=== PATIENT | male | born 1995 | race Caucasian/White ===

== ENCOUNTER 2019-05-15 07:40 | Emergency (ER) | payer BC ==
[2019-05-15 07:52] VITALS: BP 140/91; PULSE 73; RESP 18; TEMP 98.3
[2019-05-15] MEDS ORDERED: KETOROLAC 60 MG/2 ML VIAL IM STA (08:04)
[2019-05-15] MEDS ORDERED: ORPHENADRINE 30 MG/ML 2 ML VIAL IM STA (08:04)
--- NOTE | 2019-05-15 08:07 | ED ---
Back Pain HPI - General Chief Complaint: Back Pain/Injury Stated Complaint: Back pain Time Seen by Provider: 05/15/19 07:52 Source: patient, RN notes reviewed, old records reviewed Limitations: no limitations - History of Present Illness Initial Comments: This is a 24-year-old male presents emergency room today with a history of chronic back pain. Patient reports a past week he's had increased generalized weakness with in the lower extremities. 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 Patient denies any recent fall or trauma to his back. He reports he had x-rays completed by his primary care doctor but does not have with him today. He states he spoke to follow-up with Dr. Mauricio on May 29. He denies any saddle anesthesias. Denies any weight loss or other red flag symptoms. - Related Data Home Medications Medication Instructions Recorded Confirmed Ibuprofen 600 mg PO Q6H PRN 05/15/19 05/15/19 Previous Rx's Medication Instructions Recorded Cyclobenzaprine [Flexeril] 10 mg PO TID #15 tab 05/15/19 Ibuprofen 600 mg PO TID #30 tablet 05/15/19 Allergies Allergy/AdvReac Type Severity Reaction Status Date / Time No Known Allergies Allergy Verified 05/15/19 08:19 Review of Systems ROS Statement: Those systems with pertinent positive or pertinent negative responses have been documented in the HPI. ROS Other: All systems not noted in ROS Statement are negative. Past Medical History Additional Past Medical History / Comment(s): ENLARGED TONSILLS, back pain History of Any Multi-Drug Resistant Organisms: None Reported Past Surgical History: Adenoidectomy, Tonsillectomy Past Anesthesia/Blood Transfusion Reactions: Family History of Problems w/ Anesthesia Additional Past Anesthesia/Blood Transfusion Reaction / Comment(s): NAUSEA POST- OP . MOTHER HAS PONV Past Psychological History: No Psychological Hx Reported Smoking Status: Never smoker Past Alcohol Use History: None Reported Past Drug Use History: None Reported - Past Family History Mother Family Medical History: No Reported History General Exam - General Exam Comments Initial Comments: 24-year-old male. Limitations: no limitations General appearance: alert, in no apparent distress Head exam: Present: atraumatic, normocephalic, normal inspection Eye exam: Present: normal appearance, PERRL, EOMI. Absent: scleral icterus, conjunctival injection, periorbital swelling ENT exam: Present: normal exam, mucous membranes moist Neck exam: Present: normal inspection Respiratory exam: Present: normal lung sounds bilaterally. Absent: respiratory distress, wheezes, rales, rhonchi, stridor Cardiovascular Exam: Present: regular rate, normal rhythm, normal heart sounds. Absent: systolic murmur, diastolic murmur, rubs, gallop, clicks GI/Abdominal exam: Present: soft, normal bowel sounds. Absent: distended, guarding, rebound, rigid Extremities exam: Present: normal inspection, full ROM, normal capillary refill. Absent: tenderness, pedal edema, joint swelling, calf tenderness Back exam: Present: normal inspection, tenderness (lumbar spinal tenderness) Neurological exam: Present: alert, oriented X3, CN II-XII intact Psychiatric exam: Present: normal affect Skin exam: Present: warm, dry, intact, normal color. Absent: rash Course Vital Signs 05/15/19 07:49 Temperature 98.3 F Pulse Rate 73 Respiratory 18 Rate Blood Pressure 140/91 O2 Sat by Pulse 98 Oximetry Medical Decision Making - Medical Decision Making Patient is a 24-year-old male presents emergency department today for chronic lumbar back pain. Patient reportedly has been having progressive back pain for the past week. He states sometimes he feels he has some weakness in his lower extremities. At this time Patient has a saddle anesthesias. He has full range of motion of his x-rays. He does have a positive left leg straight leg test. I discussed offering the Patient IM pain medication. Has no red flag symptoms and no falls discussed no need for further imaging at this time. He is supposed follow-up with Dr. Mauricio next week. I discussed that at this time Patient will be treated with oral medications and discussed appropriate with PCP in the meantime. Discharged with a starter pack for short course of pain meds as well as return parameters were discussed. Disposition Clinical Impression: Chronic back pain Disposition: HOME SELF-CARE Condition: Good Instructions (If sedation given, give patient instructions): Acute Low Back Pain (ED) Additional Instructions: Please use medication as discussed. Please follow up with family doctor if symptoms have not improved over the next two days. Please return to the emergenc y room if your symptoms increase or worsen or for any other concerns. Prescriptions: Cyclobenzaprine [Flexeril] 10 mg PO TID #15 tab Ibuprofen 600 mg PO TID #30 tablet Is patient prescribed a controlled substance at d/c from ED?: No Referrals: Octavio Burks Jr, [Primary Care Provider] - 1-2 days Time of Disposition: 08:50
[2019-05-15] MEDS ORDERED: traMADol 50 MG STARTER PACK 3 TAB BTL PO STA (08:53)
== END 2019-05-15 09:14 | disposition home or self-care (01) ==
LOC: EC 07:40
DX: G89.29 Other chronic pain (principal); M54.5 Low back pain; R53.1 Weakness
CPT/HCPCS: 99283; 96372 ×2; J2360; J1885